=== PATIENT | female | born 1950 | race Asian ===

== ENCOUNTER 2019-06-17 05:10 | Emergency (ER) | payer OTHER ==
[~2019-06-17] VITALS: Ht 157.5 cm; Wt 59.9 kg
[2019-06-17 06:32] VITALS: BP 138/81
== END 2019-06-17 06:32 | disposition home or self-care (01) ==
LOC: ED 05:10
DX: R05 Cough (principal); R50.9 Fever, unspecified; R09.81 Nasal congestion; R51 Headache; E78.00 Pure hypercholesterolemia, unspecified; Z90.49 Acquired absence of other specified parts of digestive tract; Z86.73 Personal history of transient ischemic attack (TIA), and cerebral infarction without residual deficits